=== PATIENT | female | born 1945 | race Two or more races ===

== ENCOUNTER 2020-06-07 08:27 | Emergency (ER) | payer MEDICARE ==
[~2020-06-07] VITALS: Ht 162.6 cm; Wt 77.1 kg
[2020-06-07 08:42] VITALS: BP 146/62
--- NOTE | 2020-06-07 08:42 | NUR ---
ED Nurse Note: Pt walked in to ED from home c/o burning urination, urinary frequency and urgency x1 week. Pt reports unable to hold urine. Denies hematuria. AAOx4, verbally responsive. No SOB, on room air.
[2020-06-07] MEDS ORDERED: CEPHALEXIN500 M1 ORAL (08:52)
--- NOTE | 2020-06-07 08:52 | Emergency Room Report ---
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 COVID-19 Screening: Negative COVID-19 COVID-19 Testing Source: urgent care Patient History Past Medical History: see triage record Now: No Reviewed Nursing Documentation: PMH: Agreed; PSxH: Agreed Nursing Documentation-PMH Hx Hypertension: Yes Hx Diabetes: Yes Review of Systems All Other Systems: negative except mentioned in HPI Physical Exam Vital Signs Date Time Temp Pulse Resp B/P (MAP) Pulse Ox O2 Delivery O2 Flow Rate FiO2 06/07/20 08:39 99.0 103 19 146/62 (90) 98 Room Air General Appearance: well appearing, no apparent distress Head: normocephalic, atraumatic ENT: hearing grossly normal, normal voice Neck: full range of motion, supple Respiratory: no respiratory distress, speaking full sentences Gastrointestinal: tenderness - Suprapubically Genitourinary: no CVA tenderness Neurologic: alert, normal gait Psychiatric: mood/affect normal Skin: no rash Medical Decision Making Diagnostic Impression: Primary Impression: Urinary tract infection Qualified Codes: N30.00 - Acute cystitis without hematuria ER Course 74-year-old female presents with dysuria differential diagnosis includes UTI, pyelonephritis, Patient will be started on antibiotics cultures to be followed Last Vital Signs Date Time Temp Pulse Resp B/P (MAP) Pulse Ox O2 Delivery O2 Flow Rate FiO2 06/07/20 08:42 99.0 103 19 146/62 98 Room Air Disposition: HOME, SELF-CARE Condition: Stable Scripts Cephalexin* (KEFLEX*) 500 Mg Tablet 500 MG ORAL EVERY 6 HOURS, #20 CAP Prov: Damon Ponce MD 06/07/20 Referrals: [facility] Romario Moreno [facility] Patient Instructions: Urinary Tract Infection Additional Instructions: The patient was provided with discharge instructions, notified to follow-up with a primary care doctor and or specialist in the next 24-48 hours, and to return to the ED if they have worsening of their symptoms. Please note that this report is being documented using [employer] technology. This can lead to erroneous entry secondary to incorrect interpretation by the dictating instrument. Damon Ponce MD Jun 07, 2020 08:52
[2020-06-07 08:57] VITALS: BP 140/71
--- NOTE | 2020-06-07 08:57 | NUR ---
ED Nurse Note: Pt cleared by ERMD for discharge. DC instructions/prescription was given and explained to pt and verbalized understanding of teachings. All medical deviecs such as ID band removed. Pt is AAO x4, ambulatory and left with all personal belongings.
[2020-06-07 09:04] LABS: APPEARANCE,URINE SLIGHTLY CLOUDY; BILIRUBIN, URINE NEGATIVE (NEGATIVE); COLOR,URINE YELLOW; GLUCOSE, URINE (UA) NEGATIVE (NEGATIVE); KETONES,URINE NEGATIVE (NEGATIVE); LEUKOCYTE ESTERASE ,URINE 3+ (NEGATIVE); NITRITE,URINE NEGATIVE (NEGATIVE); PH,URINE 5 (4.5-8.0); PROTEIN,URINE 3+ (NEGATIVE); UROBILINOGEN,URINE NORMAL MG/DL (0.0-1.0)
== END 2020-06-07 09:00 | disposition home or self-care (01) ==
LOC: EMR 08:45
DX: N30.00 Acute cystitis without hematuria (principal); I10 Essential (primary) hypertension; E11.9 Type 2 diabetes mellitus without complications; Z88.6 Allergy status to analgesic agent; Z88.5 Allergy status to narcotic agent
CPT/HCPCS: 81003; 87086; 87181; 99283